=== PATIENT | female | born 1955 | race Caucasian/White ===

== ENCOUNTER 2017-01-13 06:01 | Inpatient (IN) | payer OTHER ==
[~2017-01-13 06:01] MED LIST: ACETAMINOPHEN 325 MG TAB PO ONE; DEXAMETHASONE 4 MG/ML VIAL IVP ONE; FAMOTIDINE 20 MG TAB PO ONE; LIDOCAINE 1% 2 ML INJ ONE; ROPIVACAINE 0.2% 80 MG, EPINEPHrine 0.2 MG, KETOROLAC TROMETHAMINE 30 MG in BAG 0 ML IU ONE; TRANEXAMIC ACID 3,000 MG in NS 50 ML IRR ONE; ceFAZolin 2 GM/DEXTROSE 100 ML IV ONE
[2017-01-13] MEDS ORDERED: ACETAMINOPHEN 325 MG TAB PO ONE (06:06)
[2017-01-13] MEDS ORDERED: DEXAMETHASONE 4 MG/ML VIAL IVP ONE (06:06)
[2017-01-13] MEDS ORDERED: FAMOTIDINE 20 MG TAB PO ONE (06:06)
[2017-01-13] MEDS ORDERED: ceFAZolin 2 GM/DEXTROSE 100 ML IV ONE (06:06)
[2017-01-13] MEDS ORDERED: LR 1,000 ML IV ONE (06:15)
[2017-01-13] MEDS ORDERED: LIDOCAINE 1% 2 ML INJ ID PRN (06:15)
[2017-01-13] MEDS ORDERED: TRANEXAMIC ACID 3,000 MG/50 ML BAG IRR ONE (06:36)
[2017-01-13] MEDS ORDERED: FAMOTIDINE 20 MG TAB ONE (06:38)
[2017-01-13] MEDS ORDERED: DEXAMETHASONE 4 MG/ML VIAL ONE (06:38)
[2017-01-13] MEDS ORDERED: ACETAMINOPHEN 325 MG TAB ONE (06:39)
[2017-01-13] MEDS ORDERED: CEFAZOLIN 2 GM/DEXTROSE/100 ML BAG IV ONE (06:39)
[2017-01-13] MEDS ORDERED: MIDAZOLAM 2 MG/2 ML VIAL ONE (06:57)
[2017-01-13] MEDS ORDERED: PROPOFOL/EMULSION 500 MG/50 ML BOTTLE IV ONE (06:57)
[2017-01-13] MEDS ORDERED: LIDOCAINE 2% 5 ML SDV ONE (06:57)
[2017-01-13] MEDS ORDERED: ONDANSETRON 4 MG/2 ML VIAL ONE (06:57)
--- NOTE | 2017-01-13 07:08 | PDANEPAE ---
ANE Past Medical History - Cardiovascular History Hx Hypertension: No Hx Arrhythmias: No Hx Chest Pain: No Hx Coronary Artery / Peripheral Vascular Disease: No Hx CHF / Valvular Disease: No Hx Palpitations: No - Pulmonary History Hx COPD: No Hx Asthma/Reactive Airway Disease: No Hx Recent Upper Respiratory Infection: No Hx Oxygen in Use at Home: No - Neurologic History Hx Cerebrovascular Accident: No Hx Seizures: No Hx Dementia: No - Endocrine History Hx Diabetes: No - Renal History Hx Renal Disorders: No - Liver History Hx Hepatic Disorders: No - Neurological & Psychiatric Hx Hx Neurological and Psychiatric Disorders: Yes - Cancer History Hx Cancer: No - Congenital Disorder History Hx Congenital Disorders: No - GI History Hx Gastrointestinal Disorders: No - Chronic Pain History Chronic Pain: Yes (LEFT HIP) ANE Review of Systems - Exercise capacity METS (RN): 4 METS ANE Patient History - Allergies Allergies/Adverse Reactions: oxycodone [From Percocet] Allergy (Intermediate, Verified 01/01/17 11:32) Vomiting - Home Medications Home Medications: Herbals/Supplements -Info Only 1 ea PO DAILY 12/30/16 [Last Taken 12/30/16] Melatonin [Melatonin 1 mg] 2 mg PO HS 12/30/16 [Last Taken 12/30/16] Risedronate Sodium [Actonel] 35 mg PO TU@0700 12/30/16 [Last Taken 12/30/16] Sumatriptan Succinate [Imitrex] 100 mg PO DAILY PRN 12/30/16 [Last Taken ] - NPO status NPO Since - Liquids (Date): 01/12/17 NPO Since - Liquids (Time): 22:30 NPO Since - Solids (Date): 01/12/17 NPO Since - Solids (Time): 22:30 - Smoking Hx Smoking Status: Never smoked - Family Anes Hx Family Hx Anesthesia Complications: NONE ANE Labs/Vital Signs - Vital Signs Blood Pressure: 105/67 Heart Rate: 72 Respiratory Rate: 16 O2 Sat (%): 97 Height: 158.75 cm Weight: 49.895 kg ANE Physical Exam - Airway Neck exam: FROM Mallampati Score: Class 1 Mouth exam: normal dental/mouth exam - Pulmonary Pulmonary: no respiratory distress - Cardiovascular Cardiovascular: regular rate and rhythym, no murmur, rub, or gallop, pulses symmetric bilaterally - ASA Status ASA Status: II ANE Anesthesia Plan Anesthesia Plan: spinal
--- NOTE | 2017-01-13 07:10 | PDHPUP ---
History & Physical Update H&P update statement: This history and physical update is based on an assessment of the patient which was completed after admission or registration (within 24 hours), but prior to the surgery/procedure. H&P update: H&P reviewed & patient examined, no change in patient's condition since H&P completed
[2017-01-13] MEDS ORDERED: ONDANSETRON 4 MG/2 ML VIAL IVP PRN ×2 (07:28→08:45)
[2017-01-13] MEDS ORDERED: NALOXONE HCL 0.4 MG/ML INJ IVP PRN (07:28)
[2017-01-13] MEDS ORDERED: METOCLOPRAMIDE 10 MG/2 ML VIAL IVP PRN ×2 (07:28→08:45)
[2017-01-13] MEDS ORDERED: LR 500 ML IV PRN (07:28)
[2017-01-13] MEDS ORDERED: fentaNYL 100 MCG/2 ML INJ IVP PRN (07:28)
[2017-01-13] MEDS ORDERED: MEPERIDINE 25 MG/ML SYR IVP PRN (07:28)
[2017-01-13] MEDS ORDERED: ALBUTEROL 3 ML DEYVIAL IH PRN (07:28)
[2017-01-13] MEDS ORDERED: DEXAMETHASONE 4 MG/ML VIAL IVP PRN (07:28)
[2017-01-13] MEDS ORDERED: epHEDrine SULFATE 10 MG/ML SYR ONE (07:47)
--- NOTE | 2017-01-13 08:44 | POSTOPPROG ---
Post Op Note Date of Operation: 01/13/17 Surgeon: Rubio [facility] Manager: lindsay Fournier Anesthesiologist: dr. lugo Anesthesia: Spinal Pre-op Diagnosis: Left hip OA Post-op Diagnosis: same Indication: left hip pain due to OA that failed conservative measures Procedure: L BAUDILIO ant approach Findings: severe hip OA Inf/Abcess present in the surg proc area at time of surgery?: No EBL: 100-500
[2017-01-13] MEDS ORDERED: LACTULOSE 20 GM/30 ML UDCUP PO PRN (08:45)
[2017-01-13] MEDS ORDERED: oxyCODONE IR 5 MG TAB PO PRN (08:45)
[2017-01-13] MEDS ORDERED: BISACODYL 10 MG SUPP PR PRN (08:45)
[2017-01-13] MEDS ORDERED: TEMAZEPAM 15 MG CAP PO PRN (08:45)
[2017-01-13] MEDS ORDERED: DIPHENOXYLATE/ATROPINE LOMOTIL 1 TAB PO PRN (08:45)
[2017-01-13] MEDS ORDERED: MAGNESIUM HYDROXIDE 30 ML UDCUP PO PRN (08:45)
[2017-01-13] MEDS ORDERED: CYCLOBENZAPRINE 10 MG TAB PO PRN (08:45)
[2017-01-13] MEDS ORDERED: POLYETHYLENE GLYCOL 3350 17 GM PKT PO PRN (08:45)
[2017-01-13] MEDS ORDERED: PROMETHAZINE HCL 25 MG SUPPR PR PRN (08:45)
[2017-01-13] MEDS ORDERED: PHARMACY PAIN CONSULT 1 EA MISC PRN (08:45)
[2017-01-13] MEDS ORDERED: diphenhydrAMINE 25 MG CAP PO PRN (08:45)
[2017-01-13] MEDS ORDERED: PROMETHAZINE HCL 25 MG/ML INJ IVP PRN (08:45)
[2017-01-13] MEDS ORDERED: ONDANSETRON DISINTEGRATING 4 MG TAB PO PRN (08:45)
[2017-01-13] MEDS ORDERED: NON-FORMULARY NEW DRUG (Sumatriptan Succinate [Imitrex] 100 MG) PO PRN (08:46)
[2017-01-13] MEDS ORDERED: SUMAtriptan 50 MG TAB PO PRN (08:55)
[2017-01-13] MEDS ORDERED: LR 1,000 ML IV SCH (09:00)
--- NOTE | 2017-01-13 10:06 | POSTANESTH ---
Post Anesthetic Evaluation Cardiovascular Status: Normal, Stable Respiratory Status: Normal, Stable Level of Consciousness/Mental Status: Can Participate in Eval Pain Control: Adequate, Prn Tx Ordered Nausea/Vomiting Control: Adequate, Prn Tx Ordered Complications Possibly Related to Anesthesia: None Noted
[2017-01-13] MEDS: ACETAMINOPHEN 325 MG TAB PO SCH ×3 (11:24→22:46)
[2017-01-13] MEDS: SENNOSIDES/DOCUSATE SODIUM TAB PO SCH ×2 (11:51→21:54)
[2017-01-13] MEDS: ceFAZolin 2 GM/DEXTROSE 100 ML IV SCH ×2 (13:43→21:54)
[2017-01-13] MEDS: FAMOTIDINE 20 MG TAB PO SCH (21:54)
[2017-01-13] MEDS: ASPIRIN 325 MG TAB PO SCH (21:54)
[2017-01-14 05:04] VITALS: TEMP 97.5
[2017-01-14] MEDS: ACETAMINOPHEN 325 MG TAB PO SCH (05:09)
[2017-01-14 05:13] LABS: HEMATOCRIT 35.2 % (38.0-47.0); HEMOGLOBIN 12.1 g/dL (12.6-16.3)
[2017-01-14 07:14] VITALS: BP 91/59; PULSE 57; RESP 14
[2017-01-14] MEDS: SENNOSIDES/DOCUSATE SODIUM TAB PO SCH (08:55)
[2017-01-14] MEDS: ASPIRIN 325 MG TAB PO SCH (08:55)
[2017-01-14] MEDS: FAMOTIDINE 20 MG TAB PO SCH (08:56)
[2017-01-14 09:51] VITALS: O2SAT 95
--- NOTE | 2017-01-14 13:08 | GOP ---
[f rep st] OPERATIVE REPORT DATE OF OPERATION: 01/13/2017 SURGEON: Jeffrey Moses MD BEN DAY ARTIST: Ying Moses, MARLYN. ANESTHESIA: Spinal. PREOPERATIVE DIAGNOSIS: Left hip osteoarthritis. POSTOPERATIVE DIAGNOSIS: Left hip osteoarthritis. PROCEDURE PERFORMED: Left total hip arthroplasty with x-ray. FINDINGS: ESTIMATED BLOOD LOSS: 200 cc. INDICATIONS: The patient has progressively worsening arthritis of the hip which has failed medical management. The patient understands the treatment options including continued non-operative care an d has selected surgical intervention. The patient has decided to undergo total hip arthroplasty via the direct anterior approach, understanding the risks of the procedure including, but not limited t o, neurovascular injury, infection, persistent pain, component wear and loosening, deep venous throm bosis, pulmonary embolism, limb length inequality, hip instability (including dislocation), and intr a-operative fractures. DESCRIPTION OF PROCEDURE: After proper identification of the patient including verification and mar kira the surgical site, the patient was brought to the operating room and placed in the supine posit ion. All bony prominences were well padded. Anesthesia was induced without complication and intrav enous prophylactic antibiotics were administered prior to skin incision. The operative leg was placed in the Trumpf Arch table extension and the well leg in a [place] leg h older. The patient was prepped and draped in the usual sterile fashion. The C-arm was draped for i ntra-operative fluoroscopy to check acetabular position, femoral component position including leg le ngth and femoral offset. Attention was then drawn to surgical exposure of the hip. An incision was made with a #10 [place] er blade starting 3 cm lateral and 3 cm distal to the anterior superior iliac spine measuring 8-10 c m and coursing distally toward the greater trochanter. The skin and subcutaneous tissues were divid ed sharply down to the fascia scott. The fascia scott was incised in line with the skin incision expo sing the underlying tensor fascia scott muscle. The muscle was bluntly elevated from the fascia and the first extracapsular Cobra retractor was placed laterally at the junction of the superior femoral neck and greater trochanter. The lateral femoral circumflex vessels were identified, cauterized, a nd divided with the Aquamantys bipolar cautery. The deep investing fascia of the TFL was divided to allow proper mobilization of the muscle preventing damage during the retraction. The reflected hea d of the rectus femoris muscle was elevated off the anterior hip capsule and a medial Cobra retracto r was placed just proximal to the lesser trochanter. The anterior capsulotomy was made sharply from the superolateral acetabulum to the saddle junction o f the superior femoral neck and greater trochanter, then coursing inferomedial towards the lesser tr ochanter. The retractors were then placed in the intracapsular position for femoral neck osteotomy. Corresponding to pre-operative templating, the osteotomy was made with the oscillating saw careful ly protecting the greater trochanter and soft tissues. The femoral head was removed from the acetab ulum with a corkscrew and confirmed to be severely arthritic with exposed bone, deformity and osteop hytes. Similar findings were confirmed in the acetabulum. The Arch table extension was then placed in 40 degrees external rotation. Attention was then drawn to the acetabular preparation. After placement of the anterior and posteri or Cobra retractors outside the labrum and intracapsular, the circumferential labrum was removed sha rply. The foveal contents were then removed and hemostasis obtained with cautery. The first reamer selected was sized using the removed femoral head. Reaming began with medializatio n and then commenced in 2 mm increments at 45 degrees of abduction and 15 degrees of anteversion usi ng fluoroscopic navigation. Reaming ceased 1 mm less than the definitive acetabular component and c orresponded to the pre-operative templating. The final acetabular component was inserted using fluo roscopy to achieve proper orientation yielding excellent purchase and stability in the acetabulum. The final acetabular liner was then placed and its seating confirmed. Attention was then turned to the femur. The Arch table extension was placed in extension and adduct ion, delivering the osteotomized femoral neck into the wound. A 2-pronged femoral elevator was plac ed at the calcar and another at the tip of the greater trochanter. The posterolateral capsule was r eleased with cautery allowing mobilization of the femur lateral and anterior for preparation. The e xternal rotators were visualized and preserved. A curette and rongeur were used to open the startin g point for broaching. Serial broaching started with the #0 broach and ended with the broach that e xhibited excellent fit in the proximal femur. A change in pitch during mallet strikes was accompani ed by the inability to advance the broach any further. The trial reduction was performed and fluoro scopic navigation was utilized to check limb length. Adjustments were made to equalize limb length accordingly. After the final trials were accepted they were removed and the wound was copiously lavaged. The fem oral component was seated to the same depth as the final broach and the femoral head was impacted on to the clean trunnion. The hip was then reduced for the final time and once more fluoroscopy was us ed to check that limb length equality was achieved. The wound was irrigated and closed in layers, the fascia scott with 2-0 Quill, the subcutaneous tissu e with 2-0 Quill, and the skin with Dermabond. Sterile dressings were applied. Final sharps and sp onge counts were accurate. The patient was then transferred to a hospital bed and brought to the re covery room in stable condition. IMPLANTS: Accolade II, size 5 at 127. Acetabular component a 48 mm Tritanium. The liner is a Trid ent X3 32 mm. The head is a Biolox Delta 32 mm -4. /[id number]/MODL
--- NOTE | 2017-01-14 18:23 | SOAPPROG ---
SOAP Progress Note Assessment/Plan: Assessment: Chema is doing well POD 1 s/p L BAUDILIO 1)pain management: pain is well controlled on oral pain meds 2) VTE ppx: recommend ASA daily and JADE hose. 3) anemia: level expected initially postop. asymptomatic 4) D/c planning: d/c to home pending release from PT Plan: 01/14/17 18:21 Subjective: Chema is doing well today, denies SOB, chest pain and N/V> Objective: Vital Signs Temp Pulse Resp BP Pulse Ox 36.4 C 57 L 14 91/59 L 95 01/14/17 07:13 01/14/17 07:13 01/14/17 07:13 01/14/17 07:13 01/14/17 09:00 Laboratory Results 01/14/17 05:01 01/13/17 01/14/17 01/15/17 05:59 05:59 05:59 Intake Total 1810 Output Total 1000 3500 Balance -1000 -1690 LLE: incision dressing is clean and dry, NVI, +pf/df ICD10 Worksheet Patient Problems: Problems Problem Status Onset Primary localized osteoarthritis of left hip Acute
--- NOTE | 2017-01-15 14:51 | GDS ---
[f rep st] DISCHARGE SUMMARY ADMISSION DIAGNOSIS: Left hip osteoarthritis. DISCHARGE DIAGNOSIS: Left hip osteoarthritis. PROCEDURE: Left total hip arthroplasty. VTE PROPHYLAXIS: Aspirin is recommended for 3 weeks daily. BRIEF DESCRIPTION OF HOSPITAL STAY: Patient was admitted for an elective joint arthroplasty. The p atient tolerated the procedure well and has passed physical therapy. The patient was given appropri ate antibiotic prophylaxis and venous thromboembolism prophylaxis. The patient's pain was well cont rolled on oral pain medication, patient was holding down food, and had urinated. Decision was made to discharge the patient. The patient was given post-operative prescriptions pre-operatively. PLAN: Please follow up as scheduled 02/04 at 8:45 a.m. /[id number]/MODL
== END 2017-01-14 11:37 | disposition home or self-care (01) | DRG 470 ==
LOC: F3N 06:01
PROVIDERS: ADMIT Orthopaedic Surgery; ATTEND Orthopaedic Surgery
PROC: 0SRB04Z Replacement of Left Hip Joint with Ceramic on Polyethylene Synthetic Substitute, Open Approach (ICD-10-PCS; principal; 2017-01-13 07:15)
DX: M16.12 Unilateral primary osteoarthritis, left hip (principal)
CPT/HCPCS: 97110-GP; 97116-GP; 97161-GP; 97165-GO; J0171; J0690; J1100; J1885; J2250; J2405; J2704; J2795

== ENCOUNTER 2017-01-15 17:09 | Emergency (ER) | payer OTHER ==
[2017-01-15 17:18] VITALS: RESP 16; TEMP 97.9
--- NOTE | 2017-01-15 18:01 | EDPHY ---
HPI/HX/ROS/PE/MDM Narrative: CHIEF COMPLAINT: Labial swelling HISTORY OF PRESENT ILLNESS: This patient is a 61 year old female post op day 2 from hip surgery Wednesday with Dr. Moses complaining of swollen and bruised labia. She states she is ambulatory with a walker, and following post-op precautions. She is taking Tylenol and Flexeril for pain, and states she prefers to avoid oxycodone. She endorses numbness and tingling in her left leg, but states this is due to an accident 12 years ago, and denies any new sensation. She reports she called Dr. Moses's office, who suggested the discoloration may have been caused by her ice machine. No fever, chills, chest pain, shortness of breath, palpitations, vomiting, urinary complaints, headache, lightheadedness. REVIEW OF SYSTEMS: Aside from elements discussed in the HPI, a comprehensive 10-point review of systems was reviewed and is negative. PAST MEDICAL HISTORY: Umbilical hernia surgery, hip replacement SOCIAL HISTORY: Daughter at bedside. VITAL SIGNS: Reviewed by me GENERAL: Well-developed, well-nourished, resting comfortably in no respiratory distress. HEENT: Benign exam. Moist mucous membranes.. LUNGS: Clear to auscultation bilaterally, no wheezes, rhonchi or rales. CARDIAC: Regular rate and rhythm, no rubs, murmurs or gallops. ABDOMEN: Soft, nontender, nondistended, bowel sounds normal. GENITOURINARY: Ecchymosis and edema to left labia. BACK: No CVA tenderness. EXTREMITIES: Healing surgical incision to left anterior lateral hip. Mild ecchymosis and swelling across the inguinal canal. Ecchymosis is present on the left lateral lower abdominal wall. Small amount of ecchymosis present on the proximal thigh. No edema. Range of motion limited by post-operative instructions. NEURO: Alert and oriented, grossly nonfocal. SKIN: Warm and dry, no rash. PSYCHIATRIC: Normal mentation, no agitation. Portions of this note were transcribed by a biomedical instrument technician. I personally performed a history, physical exam, medical decision making, and confirmed accuracy of information the transcribed note. ED Course: This patient is a 61 year old female post-op day two from an anterior approach hip surgery 01/13/[address] Moses. Physical exam reveals ecchymosis and swelling to the inguinal region and left labia. Plan for US and consult with Dr. Moses. 18:27 Spoke with Vanessa from Dr. Moses's office. 19:[address] Beverly, radiologist regarding ultrasound. Diffuse edema in the left inguinal and labial region, without evidence of focal hematoma. Vascular structures appear patent. Plan to discharge home in good condition with instructions to ice and treat for pain and follow up with Dr. Moses as directed. Return precautions discussed. The patient is comfortable with this plan. MDM: Differential diagnoses for the patient's symptom complex was considered including but not limited to postoperative hematoma, diffuse edema, localized swelling, infection, arterial bleeding, vascular bleeding, extravasation, dependent edema. - Data Points Imaging Results: Findings: Ultrasound imaging in the left groin and labia region of concern demonstrates diffuse edema. There is no evidence of a focal fluid collection or focal hematoma. The left common femoral artery and vein appear patent. Impression: Diffuse edema in the left inguinal and labial region, without evidence of focal hematoma. Findings and recommendations discussed with Emergency Department physician, Gladis Raphael M.D., at 1947 hours, on January 15, 2017. Imaging: Discussed imaging studies w/ calliope player Radiologist General Time Seen by Provider: 01/15/17 17:52 Initial Vital Signs: Initial Vital Signs Temperature (C) 36.6 C 01/15/17 17:15 Heart Rate 73 01/15/17 17:15 Respiratory Rate 16 01/15/17 17:15 Blood Pressure 107/64 01/15/17 17:15 O2 Sat (%) 98 01/15/17 17:15 O2 Delivery Mode Room Air Allergies/Adverse Reactions: No Known Allergies Allergy (Unverified 01/13/17 18:23) Home Medications: Medication Instructions Recorded Herbals/Supplements -Info Only 1 ea PO DAILY 12/30/16 Melatonin [Melatonin 1 mg] 2 mg PO HS 12/30/16 Sumatriptan Succinate [Imitrex] 100 mg PO DAILY PRN 12/30/16 Acetaminophen [Tylenol 325mg (*)] 650 mg PO Q6HRS #0 tab 01/14/17 Aspirin [Aspirin 325 mg (*)] 325 mg PO DAILY #0 tab 01/14/17 Cyclobenzaprine [Flexeril 10 MG 10 mg PO Q8HRS PRN #0 tab 01/14/17 (*)] Sennosides/Docusate Sodium 1 - 2 tab PO BID #0 tab 01/14/17 [Senokot-S] celeCOXIB [Celebrex (*)] 200 mg PO DAILY #0 cap 01/14/17 oxyCODONE IR [Oxycodone Ir (*)] 5 - 10 mg PO Q3HRS PRN #0 tab 01/14/17 Departure - Departure Disposition: Home, Routine, Self-Care Clinical Impression: Postoperative hematoma Condition: Good Instructions: Hematoma (ED) Additional Instructions: Continue to apply cold or ice to the groin and hematoma. Do not use the compression setting on your machine. I recommend Ibuprofen (Motrin, Advil) or Naproxen Sodium (Aleve) for pain and anti-inflammatory effects. You may take either one, but do not take both. Your dose is: Ibuprofen 600 mg every 6-8 hours with food. OR Naproxen Sodium (Aleve) 220 mg every 12 hours. Okay to use hydrocodone as needed for severe pain. Followup with Dr. Moses as directed. Referrals: Lanny Danielle MD [Primary Care Provider] - As per Instructions Rubio Moses MD [Medical Doctor] - As per Instructions Report Scribed for: Gladis Raphael Report Scribed by: Nichelle Izquierdo Date of Report: 01/15/17 Time of Report: 18:02
[2017-01-15 19:44] VITALS: BP 104/71; PULSE 69; O2SAT 96
== END 2017-01-15 20:09 | disposition home or self-care (01) ==
DX: L76.22 Postprocedural hemorrhage of skin and subcutaneous tissue following other procedure (principal); Z79.82 Long term (current) use of aspirin

== ENCOUNTER → 2017-03-13 | Outpatient (CLI) | payer OTHER | LOC: FIMAGING 10:59 | PROVIDERS: ATTEND Internal Medicine | DX: Z13.820 Encounter for screening for osteoporosis (principal); M81.0 Age-related osteoporosis without current pathological fracture; Z78.0 Asymptomatic menopausal state; Z79.899 Other long term (current) drug therapy ==

== ENCOUNTER → 2017-03-23 | Outpatient (CLI) | payer OTHER | LOC: FIMAGING 10:28 | PROVIDERS: ATTEND Internal Medicine | DX: J98.09 Other diseases of bronchus, not elsewhere classified (principal); E04.1 Nontoxic single thyroid nodule ==

== ENCOUNTER → 2017-03-23 | Outpatient (CLI) | payer OTHER | LOC: FIMAGING 10:26 | DX: Z13.6 Encounter for screening for cardiovascular disorders (principal); Z82.49 Family history of ischemic heart disease and other diseases of the circulatory system ==

== ENCOUNTER → 2017-06-24 | Outpatient (CLI) | payer OTHER | LOC: FIMAGING 17:13 | PROVIDERS: ATTEND Internal Medicine | DX: M19.071 Primary osteoarthritis, right ankle and foot (principal) ==

== ENCOUNTER → 2017-07-28 | Outpatient (CLI) | payer OTHER | LOC: FIMAGING 08:42 | PROVIDERS: ATTEND Internal Medicine | DX: Z12.31 Encounter for screening mammogram for malignant neoplasm of breast (principal); Z80.3 Family history of malignant neoplasm of breast ==

== ENCOUNTER → 2018-10-28 | Outpatient (CLI) | payer OTHER | LOC: FIMAGING 13:26 | PROVIDERS: ATTEND Internal Medicine | DX: Z12.31 Encounter for screening mammogram for malignant neoplasm of breast (principal); Z80.3 Family history of malignant neoplasm of breast ==

== ENCOUNTER → 2018-12-15 | Outpatient (CLI) | payer OTHER | LOC: FIMAGING 10:21 | PROVIDERS: ATTEND Internal Medicine | DX: Z13.820 Encounter for screening for osteoporosis (principal); M81.0 Age-related osteoporosis without current pathological fracture ==